=== PATIENT | male | born 1955 | race Asian ===

== ENCOUNTER → 2017-05-16 | Outpatient (CLI) | payer BC ==
[~2017-05-16] MED LIST: SIMV20TA
[2017-05-16 09:53] LABS: BASOPHIL # 0.1 10^3/ul (0.0-0.1); BASOPHILS % 1.5 % (0.0-2.0); EOSINOPHILS # 0.6 10^3/ul (0.0-0.5); EOSINOPHILS % 9.3 % (0.0-7.0); HEMATOCRIT 44.4 % (42.0-52.0); HEMOGLOBIN 15.7 g/dl (14.0-18.0); LYMPHOCYTES # 3.1 10^3/ul (0.8-2.9); LYMPHOCYTES % 45.8 % (15.0-51.0); MEAN CORPUSCULAR HEMOGLOBIN 31.1 pg (29.0-33.0); MEAN CORPUSCULAR HGB CONC 35.4 g/dl (32.0-37.0); MEAN CORPUSCULAR VOLUME 87.9 fl (82.0-101.0); MEAN PLATELET VOLUME 9.4 fl (7.4-10.4); MONOCYTE # 0.4 10^3/ul (0.3-0.9); MONOCYTES % 6.3 % (0.0-11.0); NEUTROPHILS % 36.8 % (39.0-77.0); PLATELET COUNT 199 10^3/UL (140-415); RED BLOOD COUNT 5.05 10^6/ul (4.70-6.10); RED CELL DISTRIBUTION WIDTH 12.6 % (11.5-14.5); WHITE BLOOD COUNT 6.8 10^3/ul (4.8-10.8)
[2017-05-16 09:56] LABS: ADD UMIC NO; UR ASCORBIC ACID NEGATIVE (NEGATIVE); UR BILIRUBIN (Dip) NEGATIVE (NEGATIVE); UR BLOOD (Dip) NEGATIVE (NEGATIVE); UR CLARITY CLEAR (CLEAR); UR COLOR YELLOW (YELLOW); UR GLUCOSE (Dip) NEGATIVE (NEGATIVE); UR KETONES (Dip) NEGATIVE (NEGATIVE); UR LEUKOCYTE ESTERASE (Dip) NEGATIVE Leu/ul (NEGATIVE); UR NITRITE (Dip) NEGATIVE (NEGATIVE); UR SPECIFIC GRAVITY (Dip) 1.019 (1.003-1.030); UR TOTAL PROTEIN (Dip) NEGATIVE (NEGATIVE); UR UROBILINOGEN (Dip) NEGATIVE (NEGATIVE)
[2017-05-16 10:28] LABS: ALBUMIN 4.4 g/dl (3.3-4.9); ALBUMIN/GLOBULIN RATIO 1.18; BILIRUBIN,INDIRECT 0.7 mg/dl (0-1.1); BILIRUBIN,TOTAL 0.7 mg/dl (0.2-1.3); CALCIUM 9.2 mg/dl (8.4-10.2); CHOL/HDL RATIO 4.1 RATIO; CREATININE 0.9 mg/dl (0.61-1.24); POTASSIUM 4.2 mmol/L (3.5-5.1); TOTAL PROTEIN 8.1 g/dl (6.1-8.1)
[2017-05-16 11:45] LABS: THYROID STIMULATING HORMONE 2.93 MIU/L (0.465-4.680)
== END | disposition home or self-care (01) ==
LOC: LAB 08:58
PROVIDERS: ATTEND Internal Medicine
DX: Z00.00 Encounter for general adult medical examination without abnormal findings (principal)
CPT/HCPCS: 80053; 80061; 81003; 84436; 84443; 85025

== ENCOUNTER → 2017-10-06 | Outpatient (CLI) | END | disposition home or self-care (01) ==

== ENCOUNTER 2017-12-04 21:12 | Emergency (ER) | END 2017-12-05 03:07 | disposition home or self-care (01) ==

== ENCOUNTER 2017-12-12 20:37 | Emergency (ER) | END 2017-12-12 23:44 | disposition home or self-care (01) ==

== ENCOUNTER → 2018-02-16 | Outpatient (CLI) | END | disposition home or self-care (01) ==

== ENCOUNTER → 2018-05-20 | Outpatient (CLI) | END | disposition home or self-care (01) ==